=== PATIENT | female | born 1945 | race Caucasian/White ===

== ENCOUNTER 2017-01-15 09:08 | Day surgery (SDC) | payer OTHER ==
--- NOTE | ~2017-01-15 | EGD ---
EGD REPORT [facility] [place] [address] [id number] NAME: SHELLY TORIBIO : [birth year] STATUS : REG [facility]#: [id number] AGE: 71 ADM/REG DATE : 01/15/17 MR#: [id number] REPORT SERV DATE: 01/15/17 DICTATED BY: DATE: REPORT STATUS : Draft TRANSCRIBED BY: [employer] DATE: 01/15/17 Endoscopy Center Patient Name: Shelly Toribio Date of : 1945 Attending MD: THALIA RONDON MD Procedure Date No Time: 01/15/2017 Procedure: Upper GI endoscopy Indications: Follow-up of esophageal reflux, Endoscopy to assess diarrhea in patient suspected of having celiac disease Referring MD: LINDSAY CONTRERAS Medicines: Monitored Anesthesia Care Complications: No immediate complications. Procedure: Pre-Anesthesia Assessment: - ASA Grade Assessment: III - A patient with severe systemic disease. After obtaining informed consent, the endoscope was passed under direct vision. Throughout the procedure, the patient's blood pressure, pulse, and oxygen saturations were monitored continuously. The GIF H190 [id number] was introduced through the mouth, and advanced to the third part of duodenum. The upper GI endoscopy was accomplished without difficulty. The patient tolerated the procedure well. Findings: There were esophageal mucosal changes suspicious for short-segment Nunez's esophagus present at the gastroesophageal junction. The maximum longitudinal extent of these mucosal changes was 1 cm in length. Biopsies were taken with a cold forceps for histology. No other significant abnormalities were identified in a careful examination of the esophagus. There is no endoscopic evidence of areas of erosion, hiatus hernia, ulcerations or varices in the entire esophagus. A single small sessile polyp with no stigmata of recent bleeding was found in the gastric fundus. The polyp was removed with a cold biopsy forceps. Resection and retrieval were complete. No other significant abnormalities were identified in a careful examination of the stomach. There is no endoscopic evidence of mucosal abnormalities, ulceration or varices in the entire examined stomach. A single small angioectasia was found in the second part of the duodenum. Random biopsies were obtained. There is no endoscopic evidence of inflammation, mucosal abnormalities or ulceration in the entire examined duodenum. The cardia and gastric fundus were otherwise normal on retroflexion. EGD REPORT [address] [place]. [address] NAME: SHELLY TORIBIO : [birth year] [place]US : [place] [facility] [place] [id number] AGE: 71 ADM/REG DATE : 01/15/17 MR#: [id number] REPORT SERV DATE: 01/15/17 DICTATED BY: DATE: REPORT STATUS : Draft TRANSCRIBED BY: [employer] SERVICES DATE: 01/15/17 Impression: - Esophageal mucosal changes suspicious for short-segment Nunez's esophagus. Biopsied. - A single gastric polyp. Resected and retrieved. - A single angioectasia in the duodenum. Recommendation: - Patient has a contact number available for emergencies. The signs and symptoms of potential delayed complications were discussed with the patient. Return to normal activities tomorrow. Written discharge instructions were provided to the patient. - Return to previous diet. - Discharge patient to home. - Continue present medications. - Await pathology results. Procedure Code(s): --- Professional --- 33076, Esophagogastroduodenoscopy, flexible, transoral; with biopsy, single or multiple Diagnosis Code(s): --- Professional --- K22.9, Disease of esophagus, unspecified K31.7, Polyp of stomach and duodenum K31.819, Angiodysplasia of stomach and duodenum without bleeding K21.9, Gastro-esophageal reflux disease without esophagitis R19.7, Diarrhea, unspecified CPT copyright 2013 [employer]. All rights reserved. The codes documented in this report are preliminary and upon electrical power engineer review may be revised to meet current compliance requirements. THALIA RONDON MD 01/15/2017 11:25 AM This report has been signed electronically. Number of Addenda: 0 Note Initiated On: 01/15/2017 11:03 AM Scope Withdrawal Time 0 hours 0 minutes 0 seconds [id number] [id number]
--- NOTE | ~2017-01-15 | EGD ---
EGD REPORT [facility] [address] [id number] NAME: SHELLY TORIBIO : [birth year] STATUS : [facility]#: [id number] AGE: 71 ADM/REG DATE : 01/15/17 MR#: [id number] REPORT SERV DATE: 02/04/17 DICTATED BY: DATE: REPORT STATUS : Draft TRANSCRIBED BY: [facility] DATE: 02/04/17 Endoscopy Center Patient Name: Shelly Toribio Date of : 1945 Attending MD: THALIA RONDON MD Procedure Date No Time: 01/15/2017 Procedure: Upper GI endoscopy Indications: Follow-up of esophageal reflux, Endoscopy to assess diarrhea in patient suspected of having celiac disease Referring MD: LINDSAY CONTRERAS Medicines: Monitored Anesthesia Care Complications: No immediate complications. Procedure: Pre-Anesthesia Assessment: - ASA Grade Assessment: III - A patient with severe systemic disease. After obtaining informed consent, the endoscope was passed under direct vision. Throughout the procedure, the patient's blood pressure, pulse, and oxygen saturations were monitored continuously. The GIF H190 [id number] was introduced through the mouth, and advanced to the third part of duodenum. The upper GI endoscopy was accomplished without difficulty. The patient tolerated the procedure well. Findings: There were esophageal mucosal changes suspicious for short-segment Nunez's esophagus present at the gastroesophageal junction. The maximum longitudinal extent of these mucosal changes was 1 cm in length. Biopsies were taken with a cold forceps for histology. No other significant abnormalities were identified in a careful examination of the esophagus. There is no endoscopic evidence of areas of erosion, hiatus hernia, ulcerations or varices in the entire esophagus. A single small sessile polyp with no stigmata of recent bleeding was found in the gastric fundus. The polyp was removed with a cold biopsy forceps. Resection and retrieval were complete. No other significant abnormalities were identified in a careful examination of the stomach. There is no endoscopic evidence of mucosal abnormalities, ulceration or varices in the entire examined stomach. A single small angioectasia was found in the second part of the duodenum. Random biopsies were obtained. There is no endoscopic evidence of inflammation, mucosal abnormalities or ulceration in the entire examined duodenum. The cardia and gastric fundus were otherwise normal on retroflexion. EGD REPORT [place] [id number] [facility]. [address] NAME: SHELLY TORIBIO : [birth year] STATUS : [facility]#: [id number] AGE: 71 ADM/REG DATE : 01/15/17 MR#: [id number] REPORT SERV DATE: 02/04/17 DICTATED BY: DATE: REPORT STATUS : Draft TRANSCRIBED BY: [employer] SERVICES DATE: 02/04/17 Impression: - Esophageal mucosal changes suspicious for short-segment Nunez's esophagus. Biopsied. - A single gastric polyp. Resected and retrieved. - A single angioectasia in the duodenum. Recommendation: - Patient has a contact number available for emergencies. The signs and symptoms of potential delayed complications were discussed with the patient. Return to normal activities tomorrow. Written discharge instructions were provided to the patient. - Return to previous diet. - Discharge patient to home. - Continue present medications. - Await pathology results. Procedure Code(s): --- Professional --- 45220, Esophagogastroduodenoscopy, flexible, transoral; with biopsy, single or multiple Diagnosis Code(s): --- Professional --- K22.9, Disease of esophagus, unspecified K31.7, Polyp of stomach and duodenum K31.819, Angiodysplasia of stomach and duodenum without bleeding K21.9, Gastro-esophageal reflux disease without esophagitis R19.7, Diarrhea, unspecified CPT copyright 2013 [employer]. All rights reserved. The codes documented in this report are preliminary and upon ocean export agent review may be revised to meet current compliance requirements. THALIA RONDON MD 01/15/2017 11:25 AM This report has been signed electronically. Number of Addenda: 0 Note Initiated On: 01/15/2017 11:03 AM Scope Withdrawal Time 0 hours 0 minutes 0 seconds [id number] [id number]
--- NOTE | ~2017-01-15 | EGD ---
EGD REPORT [facility] [address] [id number] NAME: SHELLY TORIBIO : [birth year] STATUS : REG [facility]#: [id number] AGE: 71 ADM/REG DATE : 01/15/17 MR#: [id number] REPORT SERV DATE: 01/15/17 DICTATED BY: DATE: REPORT STATUS : Draft TRANSCRIBED BY: [employer] DATE: 01/15/17 Endoscopy Center Patient Name: Shelly Toribio Date of : 1945 Attending MD: THALIA RONDON MD Procedure Date No Time: 01/15/2017 Procedure: Upper GI endoscopy Indications: Follow-up of esophageal reflux, Endoscopy to assess diarrhea in patient suspected of having celiac disease Referring MD: LINDSAY CONTRERAS Medicines: Monitored Anesthesia Care Complications: No immediate complications. Procedure: Pre-Anesthesia Assessment: - ASA Grade Assessment: III - A patient with severe systemic disease. After obtaining informed consent, the endoscope was passed under direct vision. Throughout the procedure, the patient's blood pressure, pulse, and oxygen saturations were monitored continuously. The GIF H190 [id number] was introduced through the mouth, and advanced to the third part of duodenum. The upper GI endoscopy was accomplished without difficulty. The patient tolerated the procedure well. Findings: There were esophageal mucosal changes suspicious for short-segment Nunez's esophagus present at the gastroesophageal junction. The maximum longitudinal extent of these mucosal changes was 1 cm in length. Biopsies were taken with a cold forceps for histology. No other significant abnormalities were identified in a careful examination of the esophagus. There is no endoscopic evidence of areas of erosion, hiatus hernia, ulcerations or varices in the entire esophagus. A single small sessile polyp with no stigmata of recent bleeding was found in the gastric fundus. The polyp was removed with a cold biopsy forceps. Resection and retrieval were complete. No other significant abnormalities were identified in a careful examination of the stomach. There is no endoscopic evidence of mucosal abnormalities, ulceration or varices in the entire examined stomach. A single small angioectasia was found in the second part of the duodenum. There is no endoscopic evidence of inflammation, mucosal abnormalities or ulceration in the entire examined duodenum. The cardia and gastric fundus were otherwise normal on retroflexion. EGD REPORT [address] [place]. [address] NAME: SHELLY TORIBIO : [birth year] STATUS : REG [facility] [place] PAT#: [id number] AGE: 71 ADM/REG DATE : 01/15/17 MR#: [id number] REPORT SERV DATE: 01/15/17 DICTATED BY: DATE: REPORT STATUS : Draft TRANSCRIBED BY: [employer] SERVICES DATE: 01/15/17 Impression: - Esophageal mucosal changes suspicious for short-segment Nunez's esophagus. Biopsied. - A single gastric polyp. Resected and retrieved. - A single angioectasia in the duodenum. Recommendation: - Patient has a contact number available for emergencies. The signs and symptoms of potential delayed complications were discussed with the patient. Return to normal activities tomorrow. Written discharge instructions were provided to the patient. - Return to previous diet. - Discharge patient to home. - Continue present medications. - Await pathology results. Procedure Code(s): --- Professional --- 88516, Esophagogastroduodenoscopy, flexible, transoral; with biopsy, single or multiple Diagnosis Code(s): --- Professional --- K22.9, Disease of esophagus, unspecified K31.7, Polyp of stomach and duodenum K31.819, Angiodysplasia of stomach and duodenum without bleeding K21.9, Gastro-esophageal reflux disease without esophagitis R19.7, Diarrhea, unspecified CPT copyright 2013 [employer] [place] [employer]. All rights reserved. The codes documented in this report are preliminary and upon medical billing coder review may be revised to meet current compliance requirements. THALIA RONDON MD 01/15/2017 11:25 AM This report has been signed electronically. Number of Addenda: 0 Note Initiated On: 01/15/2017 11:03 AM Scope Withdrawal Time 0 hours 0 minutes 0 seconds [id number] [id number]
--- NOTE | ~2017-01-15 | EGD ---
EGD REPORT [facility] [address] [address] NAME: SHELLY TORIBIO : [birth year] STATUS : REG [facility]#: [id number] AGE: 71 ADM/REG DATE : 01/15/17 MR#: [id number] REPORT SERV DATE: 01/15/17 DICTATED BY: DATE: REPORT STATUS : Draft TRANSCRIBED BY: [email or web address] DATE: 01/15/17 Endoscopy Center Patient Name: Shelly Toribio Date of : 1945 Attending MD: THALIA RONDON MD Procedure Date No Time: 01/15/2017 Procedure: Upper GI endoscopy Indications: Follow-up of esophageal reflux, Endoscopy to assess diarrhea in patient suspected of having celiac disease Referring MD: LINDSAY CONTRERAS Medicines: Monitored Anesthesia Care Complications: No immediate complications. Procedure: Pre-Anesthesia Assessment: - ASA Grade Assessment: III - A patient with severe systemic disease. After obtaining informed consent, the endoscope was passed under direct vision. Throughout the procedure, the patient's blood pressure, pulse, and oxygen saturations were monitored continuously. The GIF H190 [id number] was introduced through the mouth, and advanced to the third part of duodenum. The upper GI endoscopy was accomplished without difficulty. The patient tolerated the procedure well. Findings: There were esophageal mucosal changes suspicious for short-segment Nunez's esophagus present at the gastroesophageal junction. The maximum longitudinal extent of these mucosal changes was 1 cm in length. Biopsies were taken with a cold forceps for histology. No other significant abnormalities were identified in a careful examination of the esophagus. There is no endoscopic evidence of areas of erosion, hiatus hernia, ulcerations or varices in the entire esophagus. A single small sessile polyp with no stigmata of recent bleeding was found in the gastric fundus. The polyp was removed with a cold biopsy forceps. Resection and retrieval were complete. No other significant abnormalities were identified in a careful examination of the stomach. There is no endoscopic evidence of mucosal abnormalities, ulceration or varices in the entire examined stomach. A single small angioectasia was found in the second part of the duodenum. There is no endoscopic evidence of inflammation, mucosal abnormalities or ulceration in the entire examined duodenum. The cardia and gastric fundus were otherwise normal on retroflexion. EGD REPORT [address] [place]. [address] NAME: SHELLY TORIBIO : [birth year] STATUS : REG [facility] [place] PAT#: [id number] AGE: 71 ADM/REG DATE : 01/15/17 MR#: [id number] REPORT SERV DATE: 01/15/17 DICTATED BY: DATE: REPORT STATUS : Draft TRANSCRIBED BY: [employer] SERVICES DATE: 01/15/17 Impression: - Esophageal mucosal changes suspicious for short-segment Nunez's esophagus. Biopsied. - A single gastric polyp. Resected and retrieved. - A single angioectasia in the duodenum. Recommendation: - Patient has a contact number available for emergencies. The signs and symptoms of potential delayed complications were discussed with the patient. Return to normal activities tomorrow. Written discharge instructions were provided to the patient. - Return to previous diet. - Discharge patient to home. - Continue present medications. - Await pathology results. Procedure Code(s): --- Professional --- 21296, Esophagogastroduodenoscopy, flexible, transoral; with biopsy, single or multiple Diagnosis Code(s): --- Professional --- K22.9, Disease of esophagus, unspecified K31.7, Polyp of stomach and duodenum K31.819, Angiodysplasia of stomach and duodenum without bleeding K21.9, Gastro-esophageal reflux disease without esophagitis R19.7, Diarrhea, unspecified CPT copyright 2013 [employer]. All rights reserved. The codes documented in this report are preliminary and upon director child abuse therapy review may be revised to meet current compliance requirements. THALIA RONDON MD 01/15/2017 11:25 AM This report has been signed electronically. Number of Addenda: 0 Note Initiated On: 01/15/2017 11:03 AM Scope Withdrawal Time 0 hours 0 minutes 0 seconds [id number] [id number]
--- NOTE | ~2017-01-15 | EGD ---
EGD REPORT [facility] [address] [id number] NAME: SHELLY TORIBIO : [birth year] STATUS : REG [facility]#: [id number] AGE: 71 ADM/REG DATE : 01/15/17 MR#: [id number] REPORT SERV DATE: 01/15/17 DICTATED BY: DATE: REPORT STATUS : Draft TRANSCRIBED BY: [employer] DATE: 01/15/17 Endoscopy Center Patient Name: Shelly Toribio Date of : 1945 Attending MD: THALIA RONDON MD Procedure Date No Time: 01/15/2017 Procedure: Colonoscopy Indications: Clinically significant diarrhea of unexplained origin Referring MD: LINDSAY CONTRERAS Medicines: Monitored Anesthesia Care Complications: No immediate complications. Procedure: Pre-Anesthesia Assessment: - ASA Grade Assessment: III - A patient with severe systemic disease. After I obtained informed consent, the scope was passed under direct vision. Throughout the procedure, the patient's blood pressure, pulse, and oxygen saturations were monitored continuously. The PCF [id number] was introduced through the anus and advanced to the terminal ileum. The colonoscopy was performed without difficulty. The patient tolerated the procedure well. The quality of the bowel preparation was excellent. Findings: The perianal and digital rectal examinations were normal. A few small-mouthed diverticula were found in the sigmoid colon. A sessile polyp was found in the ascending colon. The polyp was diminutive in size. The polyp was removed with a cold biopsy forceps. Resection and retrieval were complete. No other significant abnormalities were identified in a careful examination of the remainder of the colon. Two small angioectasias without bleeding were found in the cecum. No other significant abnormalities were identified in a careful examination of the remainder of the colon. There is no endoscopic evidence of erythema or ulcerations in the entire colon. Biopsies were taken with a cold forceps from the entire colon for evaluation of microscopic colitis. No additional abnormalities were found on retroflexion. Impression: - Diverticulosis in the sigmoid colon. - One diminutive polyp in the ascending colon. Resected and retrieved. Recommendation: - Patient has a contact number available for emergencies. The signs and symptoms of potential delayed EGD REPORT [address] [place]. [address] NAME: SHELLY TORIBIO : [birth year] STATUS : REG [facility] [place] PAT#: [id number] AGE: 71 ADM/REG DATE : 01/15/17 MR#: [id number] REPORT SERV DATE: 01/15/17 DICTATED BY: DATE: REPORT STATUS : Draft TRANSCRIBED BY: [employer] SERVICES DATE: 01/15/17 complications were discussed with the patient. Return to normal activities tomorrow. Written discharge instructions were provided to the patient. - High fiber diet. - Discharge patient to home. - Continue present medications. - Await pathology results. - Repeat colonoscopy in 5-10 years for surveillance based on pathology results. - If the pathology report reveals adenomatous tissue, then repeat the colonoscopy for surveillance in 5 years. - If the pathology report reveals no adenomatous tissue, then repeat the colonoscopy for screening purposes in 10 years. - Start Pepto Bismol. Use 2 tabs or TBLSP by mouth 4 times daily for 2 weeks then stop. Procedure Code(s): --- Professional --- 34134, Colonoscopy, flexible, proximal to splenic flexure; with biopsy, single or multiple Diagnosis Code(s): --- Professional --- K57.30, Diverticulosis of large intestine without perforation or abscess without bleeding D12.2, Benign neoplasm of ascending colon R19.7, Diarrhea, unspecified CPT copyright 2013 [employer]. All rights reserved. The codes documented in this report are preliminary and upon evs tech review may be revised to meet current compliance requirements. THALIA RONDON MD 01/15/2017 11:40 AM This report has been signed electronically. Number of Addenda: 0 Note Initiated On: 01/15/2017 11:01 AM Scope Withdrawal Time 0 hours 8 minutes 7 seconds [phone] [id number]
[~2017-01-15 09:08] MED LIST: ASA5GR PO; ASAB PO; ATEN50 PO; ATV.5 PO; CLARIT10 PO; COMBIGAN0.2 MG/0.5 OPH; COZAAR100 MG PO; DUREZOL0.05 % OPH; LEVOTHYROXIN50 MCG PO; LOTEMAX5 GM OPH; PRAVACHOL40 MG PO; PRILO PO; VITAMIN D31000 UNIT PO; VITC500 PO; ZOFRAN ODT4 MG PO/SL; ZOVI800 PO
== END 2017-01-15 23:59 | disposition home or self-care (01) ==
LOC: DMU 09:08
PROVIDERS: Internal Medicine Gastroenterology
PROC: 0DB98ZX Excision of Duodenum, Via Natural or Artificial Opening Endoscopic, Diagnostic (ICD-10-PCS; 2017-01-15)
PROC: 0DB48ZX Excision of Esophagogastric Junction, Via Natural or Artificial Opening Endoscopic, Diagnostic (ICD-10-PCS; 2017-01-15)
PROC: 0DB68ZZ Excision of Stomach, Via Natural or Artificial Opening Endoscopic (ICD-10-PCS; 2017-01-15)
PROC: 0DBK8ZZ Excision of Ascending Colon, Via Natural or Artificial Opening Endoscopic (ICD-10-PCS; principal; 2017-01-15 11:00)
PROC: 0DBE8ZX Excision of Large Intestine, Via Natural or Artificial Opening Endoscopic, Diagnostic (ICD-10-PCS; 2017-01-15 11:00)
DX: D12.2 Benign neoplasm of ascending colon (principal); K31.7 Polyp of stomach and duodenum; K57.30 Diverticulosis of large intestine without perforation or abscess without bleeding; R19.7 Diarrhea, unspecified; K22.9 Disease of esophagus, unspecified; K31.819 Angiodysplasia of stomach and duodenum without bleeding; K21.9 Gastro-esophageal reflux disease without esophagitis; F17.210 Nicotine dependence, cigarettes, uncomplicated; J44.9 Chronic obstructive pulmonary disease, unspecified; I73.9 Peripheral vascular disease, unspecified; E03.9 Hypothyroidism, unspecified; Z86.73 Personal history of transient ischemic attack (TIA), and cerebral infarction without residual deficits; Z88.7 Allergy status to serum and vaccine; Z79.899 Other long term (current) drug therapy; Z79.82 Long term (current) use of aspirin
CPT/HCPCS: 88305